=== PATIENT | male | born 1965 | race African-American/Black ===

== ENCOUNTER → 2018-11-09 | Outpatient (CLI) | payer BC ==
[~2018-11-09] MED LIST: AMLODIPINE10 MG PO; FASTIN30 MG PO; FLONASE NASAL S16 GM NS; FLOVENT DI250 MCG/Ac IH; LASIX40 MG PO; LISINOPRIL40 MG PO; MAXZIDE 25 MG-31 TAB PO; MAXZIDE-25MG TA1 TAB PO; NAPROSYN500 MG PO; NO HOME MEDICATIONS; NORVASC 10MG10 MG PO; PREDNISONE10 MG PO; PRILOSEC 20MG20 MG PO; ZESTRIL40 MG PO
== END ==
LOC: COL.RAD 10:28
DX: R31.9 Hematuria, unspecified (principal); Z98.84 Bariatric surgery status

== ENCOUNTER 2024-03-19 10:34 | Emergency (ER) | payer BC ==
[~2024-03-19] VITALS: Ht 180.3 cm; Wt 159.1 kg
[2024-03-19 10:45] VITALS: TEMP 98.5
[2024-03-19] MEDS ORDERED: Ketorolac 30 MG/ML VIAL IM ONE (11:15)
[2024-03-19] MEDS ORDERED: NORCO 325 MG-51 TAB PO (12:14)
[2024-03-19 12:26] VITALS: BP 142/85; PULSE 58
== END 2024-03-19 12:30 | disposition home or self-care (01) ==
LOC: COL.ER 10:34
DX: M25.552 Pain in left hip (principal)
CPT/HCPCS: J1885